=== PATIENT | male | born 1985 | race Caucasian/White ===

== ENCOUNTER 2020-08-03 15:11 | Outpatient (CLI) | payer BC ==
--- NOTE | 2020-08-03 16:00 | BD ---
EXAM: DEXA bone density examination HISTORY: 35-year-old male for screening with osteoporosis COMPARISON: None FINDINGS: L1--bone mineral density 0.996 g/sq cm; T score -0.7 L2--bone mineral density 0.989 g/sq cm; T score -1.0 L3--bone mineral density 0.993 g/sq cm; T score -1.0 L4--bone mineral density 1.003 g/sq cm; T score -0.8 Total L1-L4--bone mineral density 0.995 g/sq cm; T score -0.9 Left femoral neck--bone mineral density0.879; T score -0.4 Total proximal left femur--bone mineral density 1.010; T score 0.2 IMPRESSION: Normal bone density.
== END 2020-08-03 15:12 | disposition home or self-care (01) ==
LOC: BICMAMMO 15:11
DX: Z13.820 Encounter for screening for osteoporosis (principal)
CPT/HCPCS: 77080